=== PATIENT | female | born 1965 | race African-American/Black ===

== ENCOUNTER 2017-04-05 19:47 | Emergency (ER) | payer MEDICAID ==
[~2017-04-05] VITALS: Ht 175.3 cm; Wt 106.0 kg
[2017-04-06] MEDS ORDERED: LISINOPRIL 2.5MG TABLET PO ONE (01:45)
[2017-04-06] MEDS ORDERED: KETOROLAC 60MG/2ML VIAL IM ONE (01:45)
[2017-04-06 03:01] VITALS: BP 198/81
== END 2017-04-06 03:02 | disposition home or self-care (01) ==
LOC: ER 21:13
DX: M54.5 Low back pain (principal); M54.89 Other dorsalgia; I10 Essential (primary) hypertension; E11.9 Type 2 diabetes mellitus without complications; V43.52XA Car driver injured in collision with other type car in traffic accident, initial encounter; Y93.89 Activity, other specified; Y92.488 Other paved roadways as the place of occurrence of the external cause
CPT/HCPCS: 81025; 96372; 99283; J1885; Z7610